=== PATIENT | male | born 1975 | race Two or more races ===

== ENCOUNTER 2016-09-07 11:45 | Emergency (ER) | payer OTHER ==
[2016-09-07 11:52] VITALS: RESP 16
--- NOTE | 2016-09-07 13:18 | EDPHY ---
H & P Smoking Status: Never smoked Time Seen by Provider: 09/07/16 12:55 HPI/ROS: CHIEF COMPLAINT: Left hip and sacral pain HISTORY OF PRESENT ILLNESS: 40-year-old male works at a car [employer], slipped on a wet surface landed on his left buttock and left hip complaining of pain at same location. No paresthesia. No straddle injury. No testicular pain or injury. No low back pain. No foot drop. No head injury. No nausea or vomiting. No peripheral paresthesia, weakness, numbness PHYSICAL EXAM 1) GENERAL: Well-developed, well-nourished, alert and oriented. Appears to be in no acute distress. Answering questions appropriately. 2) HEAD: Normocephalic, atraumatic 3) HEENT: Pupils equal, round, reactive to light bilaterally. 4) NECK: No cervical collar is on. Posterior cervical spine is nontender, no stepoff, no effusion. Full range of motion which does not elicit any midline cervical spine pain, no posterior midline tenderness, no step-off. 5) LUNGS: Clear to auscultation bilaterally, no wheezes 6) HEART: Regular rate and rhythm, 7) ABDOMEN: No guarding, no rebound, no focal tenderness, no peritoneal signs, no signs of trauma, no ecchymosis 8) MUSCULOSKELETAL: Tender to palpation left greater trochanteric region with no visible or palpable abnormality beyond pain. No crepitus. Soft compartments. Distal left lower extremity nontender soft compartments brisk pulses and capillary refill. 9) BACK: Tender to palpation left sacral ala. No palpable abnormality beyond pain. No midline vertebral tenderness, no fluctuance, no step-off, no obvious trauma, no visual or palpable abnormality. 10) SKIN: No laceration. No abrasion DIFFERENTIAL DIAGNOSIS: in no particular include but limited to fracture, sprain , compartment syndrome (Rodriguez,Arpan Alejandra) Constitutional: Initial Vital Signs Temperature (C) 36.7 C 09/07/16 11:48 Heart Rate 90 09/07/16 11:48 Respiratory Rate 16 09/07/16 11:48 Blood Pressure 143/100 H 09/07/16 11:48 O2 Sat (%) 98 09/07/16 11:48 O2 Delivery Mode Room Air Allergies/Adverse Reactions: No Known Allergies Allergy (Unverified 09/07/16 11:53) Home Medications: Medication Instructions Recorded Ibuprofen [Motrin (*)] 800 mg PO Q6 #15 tab 09/07/16 MDM/Departure - MDM Imaging Results: Imaging Impressions Hip X-Ray 09/07/16 11:52 Impression: Negative for fracture. Sacrum and Coccyx X-Ray 09/07/16 13:17 Impression: Negative sacrum and coccyx. Images reviewed by myself (Arpan Frias) ED Course/Re-evaluation: I did not see this patient while he was in the emergency department. However his care was discussed with the PA while the patient was in the department. I agree with treatment plan and management (Raul Moreau) - Depart Disposition: Home, Routine, Self-Care Clinical Impression: Slipped on water, Left hip pain Sacrum sprain Qualifiers: Encounter type: initial encounter Qualified Code(s): S33.8XXA - Sprain of other parts of lumbar spine and pelvis, initial encounter Condition: Good Instructions: Hip Sprain (ED) Additional Instructions: Seek medical attention if you develop new or worsening pain, if you develop bladder or bowel dysfunction, numbness around your perineum, foot drop, or any other symptoms that concern you. Acuda a atencion medica si desarrolla dolor nuevo o dolor que empeora, si desarrolla disfuncion de la vejiga o intestinos, adormecimiento rodeando el perineo, caida de pie o cualquier otro sintoma que le preocupe. Puede ayse ibuprofeno [Motrin] 800 miligramos por boca cada 6 horas carol necesite Stand Alone Forms: Work Comp Follow Up, Work Excuse Prescriptions: Ibuprofen [Motrin (*)] 800 mg PO Q6 #15 tab Referrals: [facility] [Other] - 1-2 days without fail
[2016-09-07 14:31] VITALS: BP 124/97; PULSE 78; TEMP 97.5; O2SAT 95
== END 2016-09-07 14:34 | disposition home or self-care (01) ==
DX: S79.912A Unspecified injury of left hip, initial encounter (principal); S33.8XXA Sprain of other parts of lumbar spine and pelvis, initial encounter; W18.40XA Slipping, tripping and stumbling without falling, unspecified, initial encounter; Y92.69 Other specified industrial and construction area as the place of occurrence of the external cause; Y99.8 Other external cause status; Y93.89 Activity, other specified